=== PATIENT | female | born 1985 | race African-American/Black ===

== ENCOUNTER 2018-01-07 01:47 | Emergency (ER) | payer MEDICAID ==
[~2018-01-07] VITALS: Ht 162.6 cm; Wt 63.8 kg
[~2018-01-07 01:47] MED LIST: SYNT88TA PO
[2018-01-07 01:51] VITALS: BP 124/83; PULSE 70; RESP 16; TEMP 98.1; O2SAT 100
[2018-01-07] MEDS ORDERED: SYNT88TA PO ×2 (02:23→03:10)
--- NOTE | 2018-01-07 02:26 | PD ---
HPI Chief Complaint: Chest Pain Time Seen by Provider: 02:15 Travel History International Travel<30 days: No Contact w/Intl Traveler<30days: No Traveled to known affect area: No History of Present Illness HPI The patient is a 32-year-old female that complains of right anterior upper rib pain for 3 hours. She denies any fever, hemoptysis, cough, shortness of breath and sweats or weight loss. She has a history of TB back in 2001. She states she cannot be , she has had a tubal ligation. Her pain is an achy pain , 05/20. The patient also states that she missed appointments with a Dr. and he will no longer take her back and so she is looking for a new doctor. She wants a refill on thyroid medication because she could not get it refilled [facility] Past Medical History Diminished Hearing: No Thyroid Disease: Yes (thyroidectomy) Tetanus Vaccination: Never Vaccinated Influenza Vaccination: No ?: Unknown LMP: 12/27/16 irregular : 10 Para: 9 Tubal Ligation: Yes Past Surgical History Section: Yes Endocrine Surgery: Yes (thyroidectomy) Other Surgery: Yes (Neck) Social History Alcohol Use: Yes (occas) Tobacco Use: No Substance Use: No Allergies-Medications (Allergen,Severity, Reaction): Coded Allergies: No Known Allergies (Verified Adverse Reaction, Unknown, 01/07/18) Reported Meds & Prescriptions Reported Meds & Active Scripts Active Reported Synthroid (Levothyroxine Sodium) 88 Mcg Tab 88 Mcg PO DAILY Review of Systems Except as stated in HPI: all other systems reviewed are Neg Physical Exam Narrative GENERAL: Well-nourished, well-developed patient in no respiratory distress. Her vital signs are normal. SKIN: Focused skin assessment warm/dry. HEAD: Normocephalic. EYES: No scleral icterus. No injection or drainage. NECK: Supple, trachea midline. No JVD or lymphadenopathy. CARDIOVASCULAR: Regular rate and rhythm without murmurs, gallops, or rubs. Lungs clear to auscultation bilaterally. I can partially reproduce the patient' s pain by pressing on the chest wall where the patient perceives her pain. RESPIRATORY: Breath sounds equal bilaterally. No accessory muscle use. GASTROINTESTINAL: Abdomen soft, non-tender, nondistended. MUSCULOSKELETAL: No cyanosis, or edema. BACK: Nontender without obvious deformity. No CVA tenderness. Data Data Last Documented VS Vital Signs Date Time Temp Pulse Resp B/P (MAP) Pulse Ox O2 Delivery O2 Flow Rate FiO2 01/07/18 03:04 60 16 118/73 (88) 100 Room Air 01/07/18 01:51 98.1 Orders Orders Chest, Pa & Lat (01/07/18 02:20) Ketorolac Inj (Toradol Inj) (01/07/18 02:30) MDM Medical Decision Making Medical Screen Exam Complete: Yes Emergency Medical Condition: Yes Medical Record Reviewed: Yes Interpretation(s) The chest x-ray shows no acute cardiopulmonary disease Differential Diagnosis Rib pain, pleuritic pain, pneumonia, pneumothorax-unlikely Narrative Course The patient appears to have rib pain. She'll be given Motrin 600 mg 3 times daily. She also ran out of her thyroid medications due to noncompliance to follow-up with physicians. She will get her Synthroid refilled. Diagnosis Primary Impression: Rib pain on right side Additional Impression: Medication refill Additional Instructions: Take the ibuprofen regularly, 1 tablet 3 times daily. After 4- 5 days the pain usually starts subsiding. Med/Other Pt SpecificInfo: Prescription(s) given Scripts Ibuprofen (Ibuprofen) 600 Mg Tab 600 MG PO TID, #44 TAB 0 Refills Prov: Kevin Felix MD 01/07/18 Levothyroxine (Synthroid) 88 Mcg Tab 88 MCG PO DAILY for Thyroid, #30 TAB 0 Refills Prov: Kevin Felix MD 01/07/18 Disposition: 01 DISCHARGE HOME Condition: Stable Kevin Felix MD Jan 07, 2018 02:26
[2018-01-07] MEDS ORDERED: KETOROLAC TROMETHAMINE 60 MG/2 ML (IM) VIAL IM ONE (02:30)
--- NOTE | 2018-01-07 03:01 | RADRPT ---
EXAM DATE/TIME: 01/07/2018 02:27 [place] COMPARISON: No previous studies available for comparison. INDICATIONS : Right anterior upper rib pain, no known trauma. MEDICAL HISTORY : Tuberculosis. SURGICAL HISTORY : None. ENCOUNTER: Initial ACUITY: 1 day PAIN SCORE: 5/10 LOCATION: Right upper chest FINDINGS: PA and lateral views of the chest demonstrate the lungs to be symmetrically aerated without evidence of mass, infiltrate or effusion. The cardiomediastinal contours are unremarkable. Osseous structure s are intact. CONCLUSION: 1. No acute cardiopulmonary disease. Jesus Alberto Fleming MD on January 07, 2018 at 2:59 Board Certified Radiologist. This report was verified electronically.
[2018-01-07 03:04] VITALS: BP 118/73; PULSE 60; RESP 16; O2SAT 100
[2018-01-07] MEDS ORDERED: IBUP-232 PO (03:10)
== END 2018-01-07 03:58 | disposition home or self-care (01) ==
LOC: PHED 01:47
DX: R07.81 Pleurodynia (principal); E07.89 Other specified disorders of thyroid; Z76.0 Encounter for issue of repeat prescription; Z86.11 Personal history of tuberculosis
CPT/HCPCS: 71046; 96372; 99283; J1885